=== PATIENT | male | born 1980 | race American Indian/Alaskan Native ===

== ENCOUNTER 2022-03-24 07:31 | Emergency (ER) | payer SELFPAY ==
[2022-03-24 07:49] VITALS: BP 140/97
[2022-03-24 08:14] LABS: Basophils # (Auto) 0.1 K/mm3 (0.0-0.1); Basophils % (Auto) 0.8 % (0.0-1.8); Hematocrit 38.8 % (35.5-45.6); Hemoglobin 12.8 gm/dl (11.8-15.2); Mean Corpuscular HGB Conc 33 % (32-34); Mean Corpuscular Volume 101 fl (84-94); Monocytes # (Auto) 1.3 K/mm3 (0.0-0.8); Platelet Count 239 K/mm3 (140-440); Red Blood Count 3.86 M/mm3 (3.65-5.03); Red Cell Distribution Width 14.8 % (13.2-15.2)
[2022-03-24 08:38] LABS: Alanine Aminotransferase 13 units/L (7-56); Blood Urea Nitrogen 6 mg/dL (9-20); Hemolysis Index 1
[2022-03-24 08:41] LABS: BUN/Creatinine Ratio 9
== END 2022-03-25 07:38 | disposition left against medical advice (07) ==
LOC: ED 07:31
DX: R10.9 Unspecified abdominal pain (principal); Z53.21 Procedure and treatment not carried out due to patient leaving prior to being seen by health care provider
CPT/HCPCS: 36415; 80053; 83690; 85025

== ENCOUNTER 2022-03-31 09:26 | Emergency (ER) | payer SELFPAY ==
[2022-03-31 11:31] LABS: Basophils % (Auto) 0.4 % (0.0-1.8); Eosinophils % (Auto) 0.3 % (0.0-4.3); Hematocrit 31.6 % (35.5-45.6); Lymphocytes # (Auto) 1.5 K/mm3 (1.2-5.4); Mean Corpuscular HGB Conc 35 % (32-34); Mean Corpuscular Volume 98 fl (84-94); Monocytes # (Auto) 1.3 K/mm3 (0.0-0.8); Monocytes % (Auto) 14.6 % (0.0-7.3); Platelet Count 341 K/mm3 (140-440); Red Blood Count 3.21 M/mm3 (3.65-5.03); Red Cell Distribution Width 14.3 % (13.2-15.2)
[2022-03-31 12:00] LABS: Alanine Aminotransferase 7 units/L (7-56); Albumin 3.3 g/dL (3.9-5); BUN/Creatinine Ratio 7; Blood Urea Nitrogen 5 mg/dL (9-20); Calcium 9.4 mg/dL (8.4-10.2); Hemolysis Index 7
[2022-03-31 12:11] LABS: Bilirubin,Urine NEG (Negative); Blood,Urine NEG (Negative); Color,Urine Yellow (Yellow); Protein,Urine <15 mg/dL mg/dL (Negative); Urobilinogen,Urine < 2.0 mg/dL (<2.0)
[2022-03-31 12:16] LABS: WBC,Urine < 1.0 /HPF (0.0-6.0)
[2022-03-31] MEDS ORDERED: MORPHINE 4 MG/1 ML INJ IV ONE (15:39)
[2022-03-31] MEDS ORDERED: FAMOTIDINE 20 MG/2 ML INJ IV ONE (15:39)
[2022-03-31] MEDS ORDERED: ONDANSETRON 4 MG/2 ML INJ IV ONE (15:39)
[2022-03-31] MEDS ORDERED: SODIUM CHLORIDE 0.9% 1000 ML 1,000 ML IV ONE ×2 (15:39→21:55)
--- NOTE | 2022-03-31 15:39 | Emergency Department Report ---
<ROBERT STANLEY - Last Filed: 03/31/22 22:48> ED Abdominal Pain HPI - General Chief Complaint: Abdominal Pain Stated Complaint: PANCREATIC PAIN Time Seen by Provider: 03/31/22 15:31 Source: patient Mode of arrival: Ambulatory Limitations: No Limitations - History of Present Illness Initial Comments: 41-year-old male with a past medical history of alcohol induced pancreatitis presents to the hospital complain of symptoms secondary to pancreatitis. Since last night patient has had left upper quadrant epigastric stabbing pain that is intermittent and severe. Pain is currently rated 10/10 in intensity however, patient does not appear to be in acute distress. Pain is worse with movement and palpation" locks taylor his body." Patient denies nausea, vomiting, fever, melena, hematochezia, or diarrhea. He was admitted to [facility] for 5 days earlier this month for similar symptoms however, he had nausea, vomiting, and p.o. intolerance at that time. Patient states he drank 2 cups of wine 2 days prior and currently denies daily alcohol use. - Related Data Allergies Allergy/AdvReac Type Severity Reaction Status Date / Time No Known Allergies Allergy Unverified 03/24/22 07:44 ED Review of Systems Comment: All other systems reviewed and negative ED Past Medical Hx - Past Medical History Previous Medical History?: No Additional medical history: pancreatitis - Surgical History Past Surgical History?: No - Social History Smoking Status: Current Every Day Smoker ED Physical Exam - General Limitations: No Limitations - Other Other exam information: General: No acute distress Head: Atraumatic Eyes: normal appearance ENT: Moist mucous membranes Neck: Normal appearance, no midline tenderness Chest: Clear to auscultation bilaterally CV: Regular rate and rhythm Abdomen: Soft, normal bowel sounds, epigastric and left upper quadrant tenderness but no rebound or guarding Back: Normal inspection Extremity: Normal inspection, full range of motion Neuro: Alert O x 3, no facial asymmetry, speech clear, no gross motor sensory deficit Psych: Appropriate behavior Skin: No rash ED Course - Reevaluation(s) Reevaluation #1: 03/31/22 22:45 Patient is very comfortable with minimal pain medication in the ED and has been tolerating snacking at the bedside. Patient instructed that he needs to be n.p.o. at this time he is currently awaiting bed availability at [facility] for transfer - Consultations Consultation #1: 03/31/22 19:03 case d/w Dr Janina lawrence surgery. rec transfer b/c pt may need hepatobiliary doctors and possible splenectomy 03/31/22 19:14 case d/w [facility] service, awaiting surgeon call back. 03/31/22 220:18 received call back from [facility]. Patient has been accepted by general surgeon Dr. Anthony to be seen in consultation with primary admission to the hospitalist service. States conservative management is indicated at this time. Patient will need to go to [facility] in case he needs intervention by hepatobiliary surgery. Unfortunately beds are not available at this time and patient will be placed on a wait list. Patient may not be excepted for 1 to 2 days. Once patient is accepted the casaeCase will need to be discussed with receiving hospitalist. Transfer service was able to review medical record and states that patient was seen at [facility] [place] about 3:25 AM and diagnosed with pancreatitis. Patient has not received any recent CT imaging of the abdomen and pelvis. Last imaging was an ultrasound performed in January. 03/31/22 20:21 Call placed to [facility] transfer service. Awaiting callback 03/31/22 21:06 Dr Matute surgeon at [facility] states no acute surgical intervention required at this time. conservative management rec, did not feel pt needed Hepatobiliary surgery at this time. Rec out surgeon to eval pt. NO beds available at [facility] with 12 on waiting list. 03/31/22 21:21 Case d/w Dr Dye (surgeon) still rec transfer because if his conditions worsen they do not have the ability to handle the patient if symptoms worsen. 03/31/22 21:54 [facility] declined to accept patient 03/31/22 21:57 [facility] does not have bed availability 03/31/22 21:58 [facility] does not have bed availability 03/31/22 22:08 Case discussed with [facility]. No beds available 03/31/22 22:42 [facility]. 03/31/22 22:42 I had a lengthy discussion with the patient regarding his diagnosis and recommended transfer due to lack of hepatobiliary surgeons at this facility. I have exhausted local hospitals and spoke to him about being transferred 2 hours away to [facility]. Patient states he prefers to stay local due to concerns of being at a hospital far away from his home. At this time he prefers to wait in the ED for his bed to be available at [facility] since observation is initially recommended by multiple surgeons and he does not require acute surgical intervention at this time. I recalled Dr. Dye to inform him that patient will be boarding in the ED until bed is available and requested diet recommendation. He recommends to keep the patient n.p.o. at this time. ED Medical Decision Making - Lab Data Result diagrams: 03/31/22 10:41 03/31/22 10:41 Lab Results 03/31/22 03/31/22 03/31/22 Range/Units 10:41 10:41 19:42 WBC 9.1 (4.5-11.0) K/mm3 RBC 3.21 L (3.65-5.03) M/mm3 Hgb 11.0 L (11.8-15.2) gm/dl Hct 31.6 L (35.5-45.6) % MCV 98 H (84-94) fl MCH 34 H (28-32) pg MCHC 35 H (32-34) % RDW 14.3 (13.2-15.2) % Plt Count 341 (140-440) K/mm3 Lymph % (Auto) 17.0 (13.4-35.0) % [place] % (Auto) 14.6 H (0.0-7.3) % Eos % (Auto) 0.3 (0.0-4.3) % Baso % (Auto) 0.4 (0.0-1.8) % Lymph # (Auto) 1.5 (1.2-5.4) K/mm3 [place] # (Auto) 1.3 H (0.0-0.8) K/mm3 Eos # (Auto) 0.0 (0.0-0.4) K/mm3 Baso # (Auto) 0.0 (0.0-0.1) K/mm3 Seg Neutrophils % 67.7 (40.0-70.0) % Seg Neutrophils # 6.2 (1.8-7.7) K/mm3 Sodium 131 L (137-145) mmol/L Potassium 3.8 (3.6-5.0) mmol/L Chloride 94.2 L (98-107) mmol/L Carbon Dioxide 24 (22-30) mmol/L Anion Gap 17 mmol/L BUN 5 L (9-20) mg/dL Creatinine 0.7 L (0.8-1.3) mg/dL Estimated GFR > 60 ml/min BUN/Creatinine Ratio 7 % Glucose 100 (75-100) mg/dL Calcium 9.4 (8.4-10.2) mg/dL Total Bilirubin 0.50 (0.1-1.2) mg/dL AST 16 (5-40) units/L ALT 7 (7-56) units/L Alkaline Phosphatase 92 (35-129) units/L Total Protein 7.7 (6.3-8.2) g/dL Albumin 3.3 L (3.9-5) g/dL Albumin/Globulin Ratio 0.8 % Lipase 67 H (13-60) units/L Urine Color (Yellow) Urine Turbidity (Clear) Urine pH (5.0-7.0) Ur Specific [place] (1.003-1.030) Urine Protein (Negative) mg/dL Urine Glucose (UA) (Negative) mg/dL Urine Ketones (Negative) mg/dL Urine Blood (Negative) Urine Nitrite (Negative) Urine Bilirubin (Negative) Urine Urobilinogen (<2.0) mg/dL Ur Leukocyte Esterase (Negative) Urine WBC (Auto) (0.0-6.0) /HPF Urine RBC (Auto) (0.0-6.0) /HPF U Epithel Cells (Auto) (0-13.0) /HPF SARS-CoV-2 (PCR) Negative (Negative) 03/31/22 Range/Units Unknown WBC (4.5-11.0) K/mm3 RBC (3.65-5.03) M/mm3 Hgb (11.8-15.2) gm/dl Hct (35.5-45.6) % MCV (84-94) fl MCH (28-32) pg MCHC (32-34) % RDW (13.2-15.2) % Plt Count (140-440) K/mm3 Lymph % (Auto) (13.4-35.0) % [place] % (Auto) (0.0-7.3) % Eos % (Auto) (0.0-4.3) % Baso % (Auto) (0.0-1.8) % Lymph # (Auto) (1.2-5.4) K/mm3 [place] # (Auto) (0.0-0.8) K/mm3 Eos # (Auto) (0.0-0.4) K/mm3 Baso # (Auto) (0.0-0.1) K/mm3 Seg Neutrophils % (40.0-70.0) % Seg Neutrophils # (1.8-7.7) K/mm3 Sodium (137-145) mmol/L Potassium (3.6-5.0) mmol/L Chloride (98-107) mmol/L Carbon Dioxide (22-30) mmol/L Anion Gap mmol/L BUN (9-20) mg/dL Creatinine (0.8-1.3) mg/dL Estimated GFR ml/min BUN/Creatinine Ratio % Glucose (75-100) mg/dL Calcium (8.4-10.2) mg/dL Total Bilirubin (0.1-1.2) mg/dL AST (5-40) units/L ALT (7-56) units/L Alkaline Phosphatase (35-129) units/L Total Protein (6.3-8.2) g/dL Albumin (3.9-5) g/dL Albumin/Globulin Ratio % Lipase (13-60) units/L Urine Color Yellow (Yellow) Urine Turbidity Clear (Clear) Urine pH 6.0 (5.0-7.0) Ur Specific [place] 1.004 (1.003-1.030) Urine Protein <15 mg/dl (Negative) mg/dL Urine Glucose (UA) Neg (Negative) mg/dL Urine Ketones Neg (Negative) mg/dL Urine Blood Neg (Negative) Urine Nitrite Neg (Negative) Urine Bilirubin Neg (Negative) Urine Urobilinogen < 2.0 (<2.0) mg/dL Ur Leukocyte Esterase Neg (Negative) Urine WBC (Auto) < 1.0 (0.0-6.0) /HPF Urine RBC (Auto) 1.0 (0.0-6.0) /HPF U Epithel Cells (Auto) 1.0 (0-13.0) /HPF SARS-CoV-2 (PCR) (Negative) - Radiology Data Radiology results: report reviewed CT ABDOMEN AND PELVIS WITH CONTRAST INDICATION: upper abd pain, hx of pancreatitis. TECHNIQUE: Axial CT images were obtained through the abdomen and pelvis after 100 cc Omni [address] scans at this location are performed using CT dose reduction for ALARA by means of automated exposure control. COMPARISON: None available. FINDINGS: LOWER CHEST: Moderate left pleural effusion. LIVER: No significant abnormality. GALLBLADDER: Calcified gallstones. BILE DUCTS: No significant abnormality. PANCREAS: Acute necrotizing pancreatitis with necrosis involving the pancreatic tail with 2.3 cm peripancreatic fluid collection. SPLEEN: Large subcapsular splenic hematoma measuring 6 cm transversely with splenic injury involving the lateral aspect of the spleen image 25. Loculated hyperdense fluid collection measuring 3.1 x 7.5 cm in AP by transverse diameter image 80 anterior to stomach extending into gastrohepatic ligament likely represents hematoma given its CT density of 55. ADRENALS: No significant abnormality. RIGHT KIDNEY and URETER: No significant abnormality. LEFT KIDNEY and URETER: No significant abnormality. STOMACH and SMALL BOWEL: No significant abnormality. COLON: No significant abnormality. APPENDIX: No significant abnormality. PERITONEUM: No free fluid. No free air. No fluid collection. LYMPH NODES: No significant adenopathy. AORTA and ARTERIES: No significant abnormality. IVC and VEINS: Splenic vein thrombosis with multiple collateral vessels and gastric varices. URINARY BLADDER: No significant abnormality. REPRODUCTIVE ORGANS: No significant abnormality. ADDITIONAL FINDINGS: None. SKELETAL SYSTEM: No significant abnormality. IMPRESSION: 1. Acute necrotizing pancreatitis involving the pancreatic tail. 2. Contiguous injury to spleen with large subcapsular splenic hematoma and additional loculated hematoma anterior to stomach extending into gastrohepatic ligament. 3. 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 Cholelithiasis. - Medical Decision Making 41-year-old male with a history of pancreatitis presents to the hospital with epigastric pain secondary to pancreatitis. ED work-up reveals acute necrotizing pancreatitis, subcapsular splenic hematoma, and hematoma anterior to the stomach. Other findings noted. Case discussed with general surgeon on-call who recommended transfer due to lack of hepatobiliary surgery. Case was discussed with surgeons at [facility] and [facility] who both state that patient does not require emergent surgery at this time. Conservative management recommended. Both facilities were at capacity and could not accept the patient however, [facility] placed patient on the wait list with anticipation of availability in 1 to 2 days. I attempted to call multiple facilities however they were all at capacity. Patient was unwilling at this time to be transferred further way (2 hour radius) to other tertiary care facilities with hepatic surgery capabilities. Dr. Dye general surgeon recommends that pt is kept n.p.o. I have ordered IV fluid bolus followed by maintenance fluids and as needed pain medication. Type and screen and coags ordered in case patient requires blood transfusion or emergent intervention. Patient did have her negative rapid COVID test (requested by [facility]) Once bed is provided Case will need to be rediscussed with accepting hospitalist. Accepted by general surgeon Dr. Anthony (technical sales consultant) Critical Care Time: Yes Critical care time in (mins) excluding proc time.: 75 Critical Care Time: 75 min for multiple calls, consultations, and transfer attempts ED Disposition Clinical Impression: Acute necrotizing pancreatitis Spleen hematoma Qualifiers: Encounter type: initial encounter Qualified Code(s): S36.029A - Unspecified contusion of spleen, initial encounter Disposition: 02 SHORT TERM HOSPITAL Condition: Stable Referrals: PRIMARY CARE,MD [Primary Care Provider] - 3-5 Days <GABINO OROZCO - Last Filed: 04/01/22 04:34> ED Medical Decision Making - Lab Data Result diagrams: 03/31/22 10:41 03/31/22 10:41 - Medical Decision Making I HAVE STOPPED BY AND SPOKE TO THE PATIENT; DENIES ANY DISCOMFORT. PATIENT STILL DOESN'T WANT TO BE TRANSFER TO ANY OTHER FACILITY OUTSIDE OF [facility] AND WANTS TO WAIT FOR [facility]. I WILL SIGN OUT PATIENT TO MY ON COMING COLLEAGUE DR. MELTON. <ROZINA KEARNS - Last Filed: 04/01/22 14:59> ED Course - Reevaluation(s) Reevaluation #2: 04/01/22 13:33 Patient signed out to me at shift change at 6 AM while waiting for placement. General surgeon Dr. Dye came into the emergency room to evaluate patient and get some more information. The overnight physician reported that patient did not have any complaint overnight or reported any pain. At this point we will continue to with [facility] bed availability and patient transfer. Patient is signed to incoming physician at 3 PM. Reevaluation #3: 04/01/22 14:[address] Judith eMlton while still waiting for bed availability at [facility] ED Medical Decision Making - Lab Data Result diagrams: 03/31/22 10:41 03/31/22 10:41 ED Disposition Is pt being admited?: No Does the pt Need Aspirin: No <KEHINDE MELTON - Last Filed: 04/01/22 20:23> ED Review of Systems ROS: Stated complaint: PANCREATIC PAIN Other details as noted in HPI ED Course Vital Signs 03/31/22 03/31/22 03/31/22 09:33 16:27 17:00 Temperature 97.9 F Pulse Rate 103 H 109 H Respiratory 16 18 18 Rate Blood Pressure 126/82 Blood Pressure 120/87 [Left] O2 Sat by Pulse 100 99 99 Oximetry 03/31/22 03/31/22 03/31/22 18:23 21:21 22:41 Temperature 98.1 F Pulse Rate 104 H 92 H 82 Respiratory 19 13 13 Rate Blood Pressure Blood Pressure 125/79 106/73 107/77 [Left] O2 Sat by Pulse 99 100 99 Oximetry 04/01/22 04/01/22 04/01/22 01:47 06:00 11:11 Temperature Pulse Rate 88 91 H 98 H Respiratory 15 20 18 Rate Blood Pressure Blood Pressure 108/66 105/72 113/70 [Left] O2 Sat by Pulse 100 96 100 Oximetry 04/01/22 04/01/22 04/01/22 13:00 15:00 17:00 Temperature Pulse Rate 99 H 102 H 101 H Respiratory 16 18 18 Rate Blood Pressure Blood Pressure 122/88 115/83 127/88 [Left] O2 Sat by Pulse 100 100 100 Oximetry 04/01/22 19:57 Temperature 97.7 F Pulse Rate 110 H Respiratory 16 Rate Blood Pressure Blood Pressure 147/94 [Left] O2 Sat by Pulse 100 Oximetry ED Medical Decision Making - Lab Data Result diagrams: 03/31/22 10:41 03/31/22 10:41 - Medical Decision Making Transfer center called back with bed availability at [facility]. Critical care attestation.: If time is entered above; I have spent that time in minutes in the direct care of this critically ill patient, excluding procedure time.
--- NOTE | 2022-03-31 18:13 | Cat Scan Report ---
CT ABDOMEN AND PELVIS WITH CONTRAST INDICATION: upper abd pain, hx of pancreatitis. TECHNIQUE: Axial CT images were obtained through the abdomen and pelvis after 100 cc Omni [address] scans at this location are performed using CT dose reduction for ALARA by means of automated expos ure control. COMPARISON: None available. FINDINGS: LOWER CHEST: Moderate left pleural effusion. LIVER: No significant abnormality. GALLBLADDER: Calcified gallstones. BILE DUCTS: No significant abnormality. PANCREAS: Acute necrotizing pancreatitis with necrosis involving the pancreatic tail with 2.3 cm mark pancreatic fluid collection. SPLEEN: Large subcapsular splenic hematoma measuring 6 cm transversely with splenic injury involving the lateral aspect of the spleen image 25. Loculated hyperdense fluid collection measuring 3.1 x 7.5 cm in AP by transverse diameter image 80 anterior to stomach extending into gastrohepatic ligament li aurea represents hematoma given its CT density of 55. ADRENALS: No significant abnormality. RIGHT KIDNEY and URETER: No significant abnormality. LEFT KIDNEY and URETER: No significant abnormality. STOMACH and SMALL BOWEL: No significant abnormality. COLON: No significant abnormality. APPENDIX: No significant abnormality. PERITONEUM: No free fluid. No free air. No fluid collection. LYMPH NODES: No significant adenopathy. AORTA and ARTERIES: No significant abnormality. IVC and VEINS: Splenic vein thrombosis with multiple collateral vessels and gastric varices. URINARY BLADDER: No significant abnormality. REPRODUCTIVE ORGANS: No significant abnormality. ADDITIONAL FINDINGS: None. SKELETAL SYSTEM: No significant abnormality. IMPRESSION: 1. Acute necrotizing pancreatitis involving the pancreatic tail. 2. Contiguous injury to spleen with large subcapsular splenic hematoma and additional loculated hemat kj anterior to stomach extending into gastrohepatic ligament. 3. 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 Cholelithiasi s. Signer Name: Eran Burch MD Signed: 03/31/2022 6:08 PM Workstation Name: [id number]
[2022-03-31] MEDS ORDERED: HYDROcodone/ACETAMINOPHEN 10-325MG TAB PO ONE (18:31)
[2022-03-31] MEDS ORDERED: D5W/0.9% NACL 1,000 ML IV SCH (23:00)
[2022-03-31 23:29] LABS: INR 0.84 (0.87-1.13)
[2022-03-31 23:30] LABS: Partial Thromboplastin Time 35.8 Sec. (24.2-36.6)
[2022-04-01] MEDS: MORPHINE 4 MG/1 ML INJ IV PRN ×2 (01:59→09:01)
[2022-04-01] MEDS ORDERED: oxyCODONE ER 10 MG TAB PO ONE (21:00)
[2022-04-02] MEDS: MORPHINE 4 MG/1 ML INJ IV PRN (03:04)
[2022-04-02 06:47] VITALS: BP 136/86
== END 2022-04-02 09:35 | disposition short-term general hospital (02) ==
LOC: ED 09:26
DX: S36.029A Unspecified contusion of spleen, initial encounter (principal); K85.91 Acute pancreatitis with uninfected necrosis, unspecified; F17.200 Nicotine dependence, unspecified, uncomplicated; Z20.822 Contact with and (suspected) exposure to COVID-19; X58.XXXA Exposure to other specified factors, initial encounter; Y93.89 Activity, other specified; Y92.89 Other specified places as the place of occurrence of the external cause; Y99.8 Other external cause status
CPT/HCPCS: 36415; 74177; 80053; 81001; 83690; 85025; 85610; 85730; 86850; 86900; 86901; 96361; 96374; 96375; 96376; 99291; J2270; J2405; J3490; J7030; J7042; Q9967; U0003; 99285

== ENCOUNTER 2022-04-19 19:35 | Emergency (ER) | payer SELFPAY ==
[2022-04-19 21:03] LABS: Basophils # (Auto) 0.1 K/mm3 (0.0-0.1); Basophils % (Auto) 0.7 % (0.0-1.8); Eosinophils % (Auto) 0.4 % (0.0-4.3); Hematocrit 31.5 % (35.5-45.6); Hemoglobin 10.6 gm/dl (11.8-15.2); Lymphocytes # (Auto) 1.9 K/mm3 (1.2-5.4); Lymphocytes % (Auto) 23.9 % (13.4-35.0); Mean Corpuscular HGB Conc 34 % (32-34); Mean Corpuscular Volume 93 fl (84-94); Monocytes # (Auto) 1.1 K/mm3 (0.0-0.8); Monocytes % (Auto) 14.7 % (0.0-7.3); Platelet Count 383 K/mm3 (140-440); Red Blood Count 3.39 M/mm3 (3.65-5.03); Red Cell Distribution Width 16.4 % (13.2-15.2)
[2022-04-19 21:22] LABS: Alanine Aminotransferase 6 units/L (7-56); Albumin 3.4 g/dL (3.9-5); Blood Urea Nitrogen 6 mg/dL (9-20); Calcium 8.9 mg/dL (8.4-10.2); Hemolysis Index 1
[2022-04-19 21:33] LABS: BUN/Creatinine Ratio 9
[2022-04-19 23:29] LABS: Bilirubin,Urine NEG (Negative); Blood,Urine NEG (Negative); Color,Urine Straw (Yellow); Protein,Urine <15 mg/dL mg/dL (Negative); Urobilinogen,Urine < 2.0 mg/dL (<2.0)
[2022-04-19 23:31] LABS: Bacteria,Urine 1+ /HPF (Negative)
[2022-04-19 23:33] LABS: RBC,Urine < 1.0 /HPF (0.0-6.0); WBC,Urine < 1.0 /HPF (0.0-6.0)
[2022-04-20] MEDS ORDERED: diphenhydrAMINE 25 MG CAP PO ONE (02:13)
[2022-04-20] MEDS ORDERED: METOCLOPRAMIDE 10 MG TAB PO ONE (02:13)
[2022-04-20] MEDS ORDERED: HYDROcodone/ACETAMINOPHEN 5-325 MG TAB PO ONE (02:13)
--- NOTE | 2022-04-20 03:48 | Emergency Department Report ---
ED Abdominal Pain HPI - General Chief Complaint: Abdominal Pain Stated Complaint: ABDOMINAL PAIN Time Seen by Provider: 04/20/22 02:12 Source: patient Mode of arrival: Ambulatory Limitations: No Limitations - History of Present Illness Initial Comments: Patient is a 41-year-old male with history of pancreatitis who presents with abdominal pain treated by medical for pancreatitis and discharge. However patient states he drinks alcohol and ate spicy foods 2 days ago returning symptoms. Symptoms are described at 6/10 abdominal pain aching sharp. Pain exacerbated by p.o. intake. Pain is relieved by n.p.o. MD Complaint: abdominal pain Severity scale (0 -10): 8 - Related Data Previous Rx's Medication Instructions Recorded Last Taken Type HYDROcodone/APAP 5-325 [D [place] 1 each PO Q6HR PRN #12 tablet 04/20/22 Unknown Rx 5-325 mg TAB] Omeprazole 20 mg PO BID #30 cap 04/20/22 Unknown Rx Allergies Allergy/AdvReac Type Severity Reaction Status Date / Time No Known Allergies Allergy Unverified 03/24/22 07:44 ED Review of Systems ROS: Stated complaint: ABDOMINAL PAIN Other details as noted in HPI Constitutional: malaise. denies: chills, fever Eyes: denies: eye pain, eye discharge, vision change ENT: denies: ear pain, throat pain Respiratory: denies: cough, shortness of breath, wheezing Cardiovascular: denies: chest pain, palpitations Endocrine: no symptoms reported Gastrointestinal: abdominal pain, nausea, vomiting. denies: diarrhea, constipation, melena Genitourinary: denies: urgency, dysuria, frequency, hematuria, discharge Musculoskeletal: denies: back pain, joint swelling, arthralgia Skin: denies: rash, lesions Neurological: denies: headache, weakness, paresthesias, vertigo Psychiatric: denies: anxiety, depression Hematological/Lymphatic: denies: easy bleeding, easy bruising ED Past Medical Hx - Past Medical History Additional medical history: pancreatitis - Social History Smoking Status: Current Every Day Smoker - Medications Home Medications: Home Medications Medication Instructions Recorded Confirmed Last Taken Type HYDROcodone/APAP 5-325 [D [place] 1 each PO Q6HR PRN #12 tablet 04/20/22 Unknown Rx 5-325 mg TAB] Omeprazole 20 mg PO BID #30 cap 04/20/22 Unknown Rx ED Physical Exam - General Limitations: No Limitations General appearance: alert, in no apparent distress - Head Head exam: Present: atraumatic, normocephalic - Eye Eye exam: Present: normal appearance, EOMI Pupils: Present: normal accommodation - ENT ENT exam: Present: mucous membranes moist - Neck Neck exam: Present: normal inspection, full ROM. Absent: tenderness, lymphadenopathy - Respiratory Respiratory exam: Present: normal lung sounds bilaterally. Absent: respiratory distress - Cardiovascular Cardiovascular Exam: Present: normal rhythm, bradycardia, normal heart sounds. Absent: systolic murmur, diastolic murmur, rubs, gallop - GI/Abdominal GI/Abdominal exam: Present: soft, normal bowel sounds. Absent: distended, tenderness, guarding, rebound, rigid, bruit, hernia - Rectal Rectal exam: Present: deferred - Extremities Exam Extremities exam: Present: normal inspection, full ROM, normal capillary refill. Absent: tenderness - Back Exam Back exam: Present: normal inspection. Absent: CVA tenderness (L) ED Course Vital Signs 04/19/22 04/20/22 19:45 04:25 Temperature 99.7 F H Pulse Rate 131 H 83 Respiratory 20 14 Rate Blood Pressure 120/76 Blood Pressure 104/74 [Left] O2 Sat by Pulse 96 99 Oximetry ED Medical Decision Making - Lab Data Result diagrams: 04/19/22 20:32 04/19/22 20:32 Lab Results 04/19/22 04/19/22 04/19/22 Range/Units 20:32 20:32 Unknown WBC 7.8 (4.5-11.0) K/mm3 RBC 3.39 L (3.65-5.03) M/mm3 Hgb 10.6 L (11.8-15.2) gm/dl Hct 31.5 L (35.5-45.6) % MCV 93 (84-94) fl MCH 31 (28-32) pg MCHC 34 (32-34) % RDW 16.4 H (13.2-15.2) % Plt Count 383 (140-440) K/mm3 Lymph % (Auto) 23.9 (13.4-35.0) % [place] % (Auto) 14.7 H (0.0-7.3) % Eos % (Auto) 0.4 (0.0-4.3) % Baso % (Auto) 0.7 (0.0-1.8) % Lymph # (Auto) 1.9 (1.2-5.4) K/mm3 [place] # (Auto) 1.1 H (0.0-0.8) K/mm3 Eos # (Auto) 0.0 (0.0-0.4) K/mm3 Baso # (Auto) 0.1 (0.0-0.1) K/mm3 Seg Neutrophils % 60.3 (40.0-70.0) % Seg Neutrophils # 4.7 (1.8-7.7) K/mm3 Sodium 135 L (137-145) mmol/L Potassium 3.9 (3.6-5.0) mmol/L Chloride 101.0 (98-107) mmol/L Carbon Dioxide 21 L (22-30) mmol/L Anion Gap 17 mmol/L BUN 6 L (9-20) mg/dL Creatinine 0.7 L (0.8-1.3) mg/dL Estimated GFR > 60 ml/min BUN/Creatinine Ratio 9 % Glucose 93 (75-100) mg/dL Calcium 8.9 (8.4-10.2) mg/dL Total Bilirubin 0.20 (0.1-1.2) mg/dL AST 15 (5-40) units/L ALT 6 L (7-56) units/L Alkaline Phosphatase 79 (35-129) units/L Total Protein 7.0 (6.3-8.2) g/dL Albumin 3.4 L (3.9-5) g/dL Albumin/Globulin Ratio 0.9 % Urine Color Straw (Yellow) Urine Turbidity Clear (Clear) Urine pH 6.0 (5.0-7.0) Ur Specific [place] 1.002 L (1.003-1.030) Urine Protein <15 mg/dl (Negative) mg/dL Urine Glucose (UA) Neg (Negative) mg/dL Urine Ketones Neg (Negative) mg/dL Urine Blood Neg (Negative) Urine Nitrite Neg (Negative) Urine Bilirubin Neg (Negative) Urine Urobilinogen < 2.0 (<2.0) mg/dL Ur Leukocyte Esterase Neg (Negative) Urine WBC (Auto) < 1.0 (0.0-6.0) /HPF Urine RBC (Auto) < 1.0 (0.0-6.0) /HPF Urine Bacteria (Auto) 1+ (Negative) /HPF - Medical Decision Making Vital signs improved heart rate improved with meds given in ED. Patient is tolerating p.o. intake without nausea vomiting at this time. Plan DC to home with prescriptions. Stop EtOH, follow-up with gastroenterology as directed. Critical care attestation.: If time is entered above; I have spent that time in minutes in the direct care of this critically ill patient, excluding procedure time. ED Disposition Clinical Impression: Abdominal pain Qualifiers: Abdominal location: generalized Qualified Code(s): R10.84 - Generalized abdominal pain Disposition: 01 HOME / SELF CARE / HOMELESS Is pt being admited?: No Does the pt Need Aspirin: No Condition: Stable Instructions: Abdominal Pain, Adult, [id number] Additional Instructions: Take medicines as prescribed, stop alcohol. Follow-up with gastroenterology as directed. Follow-up with your primary care doctor as directed. Prescriptions: HYDROcodone/APAP 5-325 [D [place] 5-325 mg TAB] 1 each PO Q6HR PRN #12 tablet PRN Reason: Pain Omeprazole 20 mg PO BID #30 cap Referrals: SAWYER BURCH MD [Staff Physician] - 3-5 Days HUEY QUIROZ MD [Staff Physician] - 3-5 Days Forms: Work/School Release Form(ED) Time of Disposition: 04:47
[2022-04-20] MEDS ORDERED: SODIUM CHLORIDE 0.9% 1000 ML 1,000 ML IV ONE (03:51)
[2022-04-20 05:44] VITALS: BP 116/78
== END 2022-04-20 06:20 | disposition home or self-care (01) ==
LOC: ED 19:35
DX: R10.9 Unspecified abdominal pain (principal)
CPT/HCPCS: 36415; 80053; 81001; 85025; 96360; 99283; J7030

== ENCOUNTER 2022-05-25 05:26 | Emergency (ER) | payer SELFPAY ==
[2022-05-25] MEDS ORDERED: DICYCLOMINE 10 MG/5 ML ORAL LIQD PO ONE (11:22)
[2022-05-25] MEDS ORDERED: LIDOCAINE VISCOUS 2% 15 ML ORAL LIQD PO ONE (11:22)
[2022-05-25] MEDS ORDERED: MORPHINE 4 MG/1 ML INJ IM ONE (11:22)
[2022-05-25] MEDS ORDERED: ALUM-MAG HYDROXIDE-SIMETHICONE 200-200-20MG/5ML ORAL LIQD 30 ML PO ONE (11:22)
[2022-05-25] MEDS ORDERED: ONDANSETRON 4 MG ODT TAB PO ONE (11:22)
--- NOTE | 2022-05-25 11:33 | Emergency Department Report ---
ED Abdominal Pain HPI - General Chief Complaint: Abdominal Pain Stated Complaint: ABD PAIN Time Seen by Provider: 05/25/22 10:35 Source: patient Mode of arrival: Ambulatory Limitations: No Limitations - History of Present Illness Initial Comments: 41-year-old black male with a past medical history of alcohol induced pancreatitis presents to the emergency department for evaluation of 1 month history of epigastric pain. He states that he was started on omeprazole and hydrocodone about 1 month ago for epigastric pain but ran out about a week ago and has developed epigastric pain again. He denies fever, nausea, vomiting, dysuria, and penile discharge. He states that pain is 8 out of 10 and worsens with certain movements. He states that he has been able to eat and drink without any problems. MD Complaint: abdominal pain -: Gradual, week(s) (2) Location: epigastric Radiation: none Migration to: no migration Severity scale (0 -10): 8 Quality: aching Consistency: constant Worsens With: movement Context: other Associated Symptoms: denies: nausea, vomiting, diarrhea, fever, chills, dysuria, hematemesis, hematochezia, melena, hematuria, anorexia, syncope - Related Data Previous Rx's Medication Instructions Recorded Last Taken Type HYDROcodone/APAP 5-325 [[place] 1 each PO Q6HR PRN #12 tablet 05/25/22 Unknown Rx 5-325 mg TAB] Omeprazole 20 mg PO BID #30 cap 05/25/22 Unknown Rx Allergies Allergy/AdvReac Type Severity Reaction Status Date / Time No Known Allergies Allergy Unverified 03/24/22 07:44 ED Review of Systems ROS: Stated complaint: ABD PAIN Other details as noted in HPI Comment: All other systems reviewed and negative Constitutional: denies: chills, fever Respiratory: denies: shortness of breath Cardiovascular: denies: chest pain, palpitations Gastrointestinal: abdominal pain. denies: nausea, vomiting, diarrhea, hematemesis, melena, hematochezia Genitourinary: denies: urgency, dysuria Musculoskeletal: denies: back pain Neurological: denies: headache, weakness ED Past Medical Hx - Past Medical History Additional medical history: pancreatitis - Social History Smoking Status: Current Every Day Smoker - Medications Home Medications: Home Medications Medication Instructions Recorded Confirmed Last Taken Type HYDROcodone/APAP 5-325 [[place] 1 each PO Q6HR PRN #12 tablet 05/25/22 Unknown Rx 5-325 mg TAB] Omeprazole 20 mg PO BID #30 cap 05/25/22 Unknown Rx ED Physical Exam - General Limitations: No Limitations General appearance: alert, in no apparent distress - Head Head exam: Present: atraumatic, normocephalic - Eye Eye exam: Present: normal appearance. Absent: conjunctival injection - ENT ENT exam: Present: normal exam - Neck Neck exam: Present: normal inspection, full ROM. Absent: tenderness, lymphadenopathy - Respiratory Respiratory exam: Present: normal lung sounds bilaterally. Absent: respiratory distress, wheezes, rales, rhonchi, stridor, chest wall tenderness - Cardiovascular Cardiovascular Exam: Present: regular rate, normal heart sounds - GI/Abdominal GI/Abdominal exam: Present: soft, tenderness (Epigastric area and left lower quadrant), normal bowel sounds. Absent: distended, guarding, rebound, rigid - Extremities Exam Extremities exam: Present: normal inspection, full ROM, normal capillary refill. Absent: pedal edema, joint swelling, calf tenderness - Back Exam Back exam: Present: normal inspection. Absent: CVA tenderness (R), CVA tenderness (L), vertebral tenderness - Neurological Exam Neurological exam: Present: alert, oriented X3, normal gait - Psychiatric Psychiatric exam: Present: normal affect, normal mood - Skin Skin exam: Present: warm, dry, intact, normal color ED Course Vital Signs 05/25/22 05/25/22 05:35 13:50 Temperature 98.0 F 98.4 F Pulse Rate 88 80 Respiratory 18 16 Rate Blood Pressure 136/84 Blood Pressure 141/73 [Right] O2 Sat by Pulse 99 99 Oximetry - Reevaluation(s) Reevaluation #1: 05/25/22 13:41 Patient states that pain has totally resolved and he feels much better and is ready to be discharged ED Medical Decision Making - Lab Data Result diagrams: 05/25/22 12:38 05/25/22 12:38 - Medical Decision Making 41-year-old black male with a past medical history of alcohol induced pancreatitis presents to the emergency department for evaluation of 1 month history of epigastric pain. He states that he was started on omeprazole and hydrocodone about 1 month ago for epigastric pain but ran out about a week ago and has developed epigastric pain again. He denies fever, nausea, vomiting, dysuria, and penile discharge. He states that pain is 8 out of 10 and worsens with certain movements. He states that he has been able to eat and drink without any problems. Patient states that pain has resolved after medication and despite elevated lipase he states that he is not interested in any further testing because pain is usually manageable on medications that he was given 1 month ago. Patient will be discharged home with refill of medications along with eating plan and advised to follow-up with GI or his primary care provider if no improvement or worsening symptoms. Patient states that he has not had any problems eating and was advised to return to the emergency department immediately if he becomes intolerable of food and drink. Patient verbalizes understanding of and agreement with plan of care. Critical care attestation.: If time is entered above; I have spent that time in minutes in the direct care of this critically ill patient, excluding procedure time. ED Disposition Clinical Impression: Epigastric pain Disposition: 01 HOME / SELF CARE / HOMELESS Is pt being admited?: No Does the pt Need Aspirin: No Condition: Stable Instructions: Pancreatitis Eating Plan, Abdominal Pain, Adult, [id number] Additional Instructions: Take medications as prescribed. Follow-up with your primary care provider or GI doctor for further evaluation and management. Return to the emergency department immediately if you are unable to keep down any food or drink or if you develop a fever or worsening pain. Prescriptions: HYDROcodone/APAP 5-325 [[place] 5-325 mg TAB] 1 each PO Q6HR PRN #12 tablet PRN Reason: Pain Omeprazole 20 mg PO BID #30 cap Referrals: MYRA MULTANI MD [Staff Physician] - 3-5 Days PEMA VELEZ MD [Staff Physician] - 3-5 Days Forms: Work/School Release Form(ED) Time of Disposition: 13:45
[2022-05-25 11:57] LABS: Color,Urine Straw (Yellow)
[2022-05-25 11:58] LABS: Mucus,Urine FEW /HPF; RBC,Urine < 1.0 /HPF (0.0-6.0)
[2022-05-25 13:00] LABS: Hematocrit 41.6 % (35.5-45.6); Hemoglobin 13.5 gm/dl (11.8-15.2); Mean Corpuscular HGB Conc 33 % (32-34); Mean Corpuscular Volume 94 fl (84-94); Platelet Count 190 K/mm3 (140-440); Red Blood Count 4.41 M/mm3 (3.65-5.03); Red Cell Distribution Width 19.7 % (13.2-15.2)
[2022-05-25 13:18] LABS: Alanine Aminotransferase 11 units/L (7-56); Albumin 3.9 g/dL (3.9-5); Blood Urea Nitrogen 5 mg/dL (9-20); Calcium 9.2 mg/dL (8.4-10.2); Hemolysis Index 9
[2022-05-25 13:20] LABS: BUN/Creatinine Ratio 8
[2022-05-25 14:05] VITALS: BP 141/73
== END 2022-05-25 14:53 | disposition home or self-care (01) ==
LOC: ED 05:26
DX: R10.13 Epigastric pain (principal); F17.200 Nicotine dependence, unspecified, uncomplicated
CPT/HCPCS: 36415; 80053; 81001; 83690; 85027; 96372; 99283; J2270; J3490; Q0162

== ENCOUNTER 2022-06-28 02:32 | Emergency (ER) | payer SELFPAY ==
[2022-06-28 04:33] LABS: Basophils # (Auto) 0.1 K/mm3 (0.0-0.1); Basophils % (Auto) 0.9 % (0.0-1.8); Eosinophils % (Auto) 0.6 % (0.0-4.3); Hematocrit 37.3 % (35.5-45.6); Hemoglobin 12.7 gm/dl (11.8-15.2); Lymphocytes % (Auto) 30.3 % (13.4-35.0); Mean Corpuscular HGB Conc 34 % (32-34); Mean Corpuscular Volume 96 fl (84-94); Monocytes # (Auto) 0.9 K/mm3 (0.0-0.8); Monocytes % (Auto) 14.1 % (0.0-7.3); Platelet Count 172 K/mm3 (140-440); Red Blood Count 3.87 M/mm3 (3.65-5.03)
[2022-06-28 04:40] LABS: BUN/Creatinine Ratio 10; Blood Urea Nitrogen 8 mg/dL (9-20); Calcium 9.6 mg/dL (8.4-10.2); Hemolysis Index 4
[2022-06-28] MEDS ORDERED: MORPHINE 4 MG/1 ML INJ IM ONE (11:27)
[2022-06-28] MEDS ORDERED: ALUM-MAG HYDROXIDE-SIMETHICONE 200-200-20MG/5ML ORAL LIQD 30 ML PO ONE (11:27)
--- NOTE | 2022-06-28 11:33 | Emergency Department Report ---
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 He is out of his medications again and requesting refill. He had an appointment with GI but they were going to charge him $300 so he did not get seen. The patient does have insurance kicking in in 2 weeks and plans to reschedule that appointment. Today he denies any fevers chills nausea vomiting or diarrhea. He took his last omeprazole last night and his last hydrocodone 2 days ago. Pain is epigastric, squeezing and radiating into the back. 5-6 out of 10. His appetite has been normal. Patient feels like this is mild. He is not drinking as much as he was back in March. Last beer was 2 to 3 days ago. He believes it was brought in by some spicy food that he ate and now out of medications. He is not wanting a CAT scan today. He states "I do not feel like it is that bad." Associated Symptoms: denies: nausea, vomiting, diarrhea, fever, chills, constipation, dysuria, hematemesis, hematochezia, melena, anorexia - Related Data Previous Rx's Medication Instructions Recorded Last Taken Type HYDROcodone/APAP 5-325 [[place] 1 each PO Q6HR PRN #12 tablet 05/25/22 Unknown Rx 5-325 mg TAB] Omeprazole 20 mg PO BID #30 cap 05/25/22 Unknown Rx Omeprazole 20 mg PO BID #60 cap 06/28/22 Unknown Rx traMADoL [Ultram 50 MG tab] 50 mg PO Q6HR PRN #12 tablet 06/28/22 Unknown Rx Allergies Allergy/AdvReac Type Severity Reaction Status Date / Time No Known Allergies Allergy Unverified 03/24/22 07:44 ED Review of Systems ROS: Stated complaint: ABD PAIN Other details as noted in HPI Comment: All other systems reviewed and negative Constitutional: denies: chills, fever Eyes: denies: eye pain, eye discharge, vision change ENT: denies: ear pain, throat pain Respiratory: denies: cough, shortness of breath, wheezing Cardiovascular: denies: chest pain, palpitations Endocrine: no symptoms reported Gastrointestinal: as per HPI, abdominal pain. denies: nausea, vomiting, diarrhea, constipation, hematemesis, melena, hematochezia Genitourinary: denies: urgency, dysuria Musculoskeletal: denies: back pain, joint swelling, arthralgia Skin: denies: rash, lesions Neurological: denies: headache, weakness, paresthesias Psychiatric: denies: anxiety, depression Hematological/Lymphatic: denies: easy bleeding, easy bruising ED Past Medical Hx - Past Medical History Additional medical history: pancreatitis - Social History Smoking Status: Current Every Day Smoker - Medications Home Medications: Home Medications Medication Instructions Recorded Confirmed Last Taken Type HYDROcodone/APAP 5-325 [[place] 1 each PO Q6HR PRN #12 tablet 05/25/22 Unknown Rx 5-325 mg TAB] Omeprazole 20 mg PO BID #30 cap 05/25/22 Unknown Rx Omeprazole 20 mg PO BID #60 cap 06/28/22 Unknown Rx traMADoL [Ultram 50 MG tab] 50 mg PO Q6HR PRN #12 tablet 06/28/22 Unknown Rx ED Physical Exam - General Limitations: No Limitations General appearance: alert, in no apparent distress - Head Head exam: Present: atraumatic, normocephalic - Eye Eye exam: Present: normal appearance - ENT ENT exam: Present: mucous membranes moist - Neck Neck exam: Present: normal inspection - Respiratory Respiratory exam: Present: normal lung sounds bilaterally. Absent: respiratory distress - Cardiovascular Cardiovascular Exam: Present: regular rate, normal rhythm. Absent: systolic murmur, diastolic murmur, rubs, gallop - GI/Abdominal GI/Abdominal exam: Present: soft, tenderness (Mild epigastric), normal bowel sounds. Absent: distended, guarding, rebound, rigid - Rectal Rectal exam: Present: deferred - Extremities Exam Extremities exam: Present: normal inspection - Back Exam Back exam: Present: normal inspection - Neurological Exam Neurological exam: Present: alert, oriented X3 - Psychiatric Psychiatric exam: Present: normal affect, normal mood - Skin Skin exam: Present: warm, dry, intact, normal color. Absent: rash ED Course Vital Signs 06/28/22 06/28/22 03:20 13:28 Temperature 98.8 F Pulse Rate 94 H 94 H Respiratory 18 18 Rate Blood Pressure 118/80 116/84 [Right] O2 Sat by Pulse 100 100 Oximetry - Reevaluation(s) Reevaluation #1: 06/28/22 11:35 Labs reviewed. Lipase is elevated at 97. Patient states he is not drinking as much. Last beer was 2 to 3 days ago but he ate some spicy food that he thinks kicked this then. GI cocktail and morphine ordered. Reevaluation #2: 06/28/22 13:10 Patient states feeling better and anxious to go home. ED Medical Decision Making - Lab Data Result diagrams: 06/28/22 03:50 06/28/22 03:50 Critical care attestation.: If time is entered above; I have spent that time in minutes in the direct care of this critically ill patient, excluding procedure time. ED Disposition Clinical Impression: Pancreatitis Disposition: 01 HOME / SELF CARE / HOMELESS Is pt being admited?: No Condition: Stable Instructions: Acute Pancreatitis, [id number], Chronic Pancreatitis Additional Instructions: Avoid alcohol follow-up with trend investigator. Recommend that you make an appointment now Prescriptions: Omeprazole 20 mg PO BID #60 cap traMADoL [Ultram 50 MG tab] 50 mg PO Q6HR PRN #12 tablet PRN Reason: Pain Referrals: PRIMARY CARE,MD [Primary Care Provider] - 3-5 Days Forms: Work/School Release Form(ED) Time of Disposition: 13:12
[2022-06-28 13:30] VITALS: BP 116/84
== END 2022-06-28 13:28 | disposition home or self-care (01) ==
LOC: ED 02:32
DX: K85.90 Acute pancreatitis without necrosis or infection, unspecified (principal); F17.200 Nicotine dependence, unspecified, uncomplicated
CPT/HCPCS: 36415; 80048; 83690; 85025; 96372; 99283; J2270